=== PATIENT | male | born 1990 | race Caucasian/White ===

== ENCOUNTER 2022-01-15 05:33 | Outpatient (CLI) | payer OTHER ==
[~2022-01-15] VITALS: Ht 182.8 cm; Wt 77.0 kg
== END 2022-01-15 11:39 | disposition home or self-care (01) ==
LOC: PREOP 05:33
PROVIDERS: ATTEND Specialist
DX: Z01.818 Encounter for other preprocedural examination (principal)

== ENCOUNTER 2022-01-21 09:57 | Day surgery (SDC) | payer OTHER ==
[2022-01-21] VITALS (11 sets, daily range): BP systolic 112–139; BP diastolic 75–90
[~2022-01-21] VITALS: Ht 182.8 cm; Wt 77.0 kg
[2022-01-21] MEDS ORDERED: LACTATED RINGERS 1,000 ML IV PRN (10:30)
[2022-01-21] MEDS ORDERED: CLINDAMYCIN 600 MG/50 ML IVPB 50 ML IV ONE (10:30)
[2022-01-21] MEDS ORDERED: MIDAZOLAM 2 MG/2 ML (VERSED) VIAL ONE (10:58)
[2022-01-21] MEDS ORDERED: fentaNYL INJ 100 MCG/2 ML AMP ONE (10:58)
[2022-01-21] MEDS ORDERED: LIDOCAINE/EPI 2% 1:200,00 (XYLOCAINE) 10 ML VIAL ONE (10:59)
[2022-01-21] MEDS ORDERED: BACITRACIN OINTMENT 28 GM TUBE ONE (11:00)
[2022-01-21] MEDS ORDERED: ROPIVACAINE 5MG/ML 30ML VIAL ONE (11:00)
[2022-01-21] MEDS ORDERED: BSS 15 ML ONE (11:00)
[2022-01-21] MEDS ORDERED: PHENYLEPHRINE 0.5% NASAL SPR (NEO-SYNEPHRINE) REG ONE (11:00)
[2022-01-21] MEDS ORDERED: ROCURONIUM 50 MG/5 ML (ZEMURON) VIAL IV ONE (12:32)
[2022-01-21] MEDS ORDERED: LIDOCAINE PF 2% 5 ML (XYLOCAINE) VIAL ONE (12:32)
[2022-01-21] MEDS ORDERED: ONDANSETRON 4 MG/2 ML (SDV) Z0FRAN ONE (12:32)
[2022-01-21] MEDS ORDERED: proPOfol 200 MG/20 ML (DIPRIVAN) VIAL IV ONE (12:33)
[2022-01-21] MEDS ORDERED: SEVOFLURANE (ULTANE) 15 ML INHAL SOLN ONE ×2 (12:33→14:17)
[2022-01-21] MEDS ORDERED: HYDROmorphone 2 MG/ML VIAL (DILAUDID) ONE (13:47)
[2022-01-21] MEDS ORDERED: morphine INJ 10 MG/ML 1ML (SYR OR VIAL) IVP ONE (14:15)
[2022-01-21] MEDS ORDERED: ONDANSETRON 4 MG/2 ML (SDV) Z0FRAN IVP PRN (14:15)
[2022-01-21] MEDS ORDERED: HYDROmorphone 2 MG/ML VIAL (DILAUDID) IV ONE (14:15)
--- NOTE | 2022-01-21 14:21 | Anesthesia-General Post-Op ---
General Patient Condition Mental Status/LOC: Same as Preop Cardiovascular: Satisfactory Nausea/Vomiting: Absent Respiratory: Satisfactory Pain: Controlled Complications: Absent Post Op Complications Complications None Follow Up Care/Instructions Patient Instructions None needed. Anesthesia/Patient Condition Patient Condition Patient is doing well, no complaints, stable vital signs, no apparent adverse anesthesia problems. No complications reported per nursing. EULOGIO MILLARD DO Jan 21, 2022 14:21
--- NOTE | 2022-02-07 12:55 | OPERATIVE REPORT ---
DATE OF SERVICE: 01/21/2022 PREOPERATIVE DIAGNOSES: Deviated nasal septum, turbinate hypertrophy and decreased internal nasal valve angle bilaterally. POSTOPERATIVE DIAGNOSES: Deviated nasal septum, turbinate hypertrophy and decreased internal nasal valve angle bilaterally. PROCEDURES PERFORMED: Nasal osteotomies both laterally and medially, septoplasty and turbinectomy. SURGEON: Loretta Travis DDS. MECHANICAL SYSTEM TECHNICIAN: . ANESTHESIA: General endotracheal. COMPLICATIONS: There were no complications. BLOOD LOSS: Approximately 100 mL. FLUIDS: 1200 mL of crystalloid. HISTORY OF PRESENT ILLNESS AND INDICATION FOR PROCEDURE: The patient is a 31-year-old otherwise healthy white male, who presents with a history of chronic stuffiness, postnasal drip as well as by report numerous sinus infections and again pain and fullness in his frontal and ethmoid sinuses. After I examined him and speaking with him in detail, he has had steroids, multiple rounds of antibiotics and has been evaluated by his primary care physician and stated to the point that he felt that he was going to have to require evaluation and possible surgery. We originally placed him on some Medrol Dosepak when he presented and also some nasal steroids; however, these were refractory and offered no improvement. We then did a CT of his nasal complex and then it was seen that he did have a gross amount of nasal turbinate hypertrophy to the point that I did not see the ability to have airflow. He also had a deviated nasal septum and constriction of internal nasal valve angled down to about 70 degrees. While he is a male, he has a rather arched and narrow nose and even at the piriform rim. Subsequently, I advised him that we would have to perform nasal osteotomies and nasal septoplasty and turbinectomy. He was allowed to ask questions. We saw him back twice for consultation just to make sure that he was not going to be able to be possibly treated without surgery; however, this was not the case and then he elected for surgery at the earliest opportune time. DESCRIPTION OF PROCEDURE: The patient was taken to the operating room and placed on laboratory table with appropriate monitors placed and anesthesia was induced via orotracheal intubation without difficulty. Once this was secured, the surgeon left the room, scrubbed, returned, donned sterile gowns and gloves and prepped and draped the patient in the usual standard sterile fashion. After this, we deposited local anesthesia in and around the piriform rim both internally on the anterior wall of the maxilla and medially on the lateral aspect of the nasal wall as well as on the floor of the nose and the nasal septum at the junction of the cartilage and the bony septum. This was allowed to take effect basically for hemostasis. We also packed nasal Himanshu-Synephrine gauze and after meticulous constriction to allow us better visualization as well as hemostasis. After this, we used a #15 blade to excise along the anterior portion of the piriform rims bilaterally and elevated a full thickness mucoperiosteal flap, but done it in such a way that we essentially just used a periosteal elevator to make a tunnel, leave as much of the periosteum attached both on the anterior and medial aspect. This was done bilaterally. I then used an osteotome and excised along the piriform rim at the junction of the maxilla and the nasal bones anterior to the glabellar region and then stopping short at the nasolacrimal ducts bilaterally. I then used Boies elevator just to elevate and mobilize these segments. Also, at this time, we used a #15 blade to excise through the mucosa of the nasal septum down to the floor of the nose, ended up leaving approximately 1 cm, stopping short of the roof of the superior aspect of the cartilage and then was dissected back to the junction of the cartilaginous and bony septum and then under direct visualization was able to mobilize the septum without difficulty and then also used an John forceps to reduce the bones and straighten up the septum after removing some cartilage and freeing up the floor of the nose or the mid palatal crest. Once this was completed, we then closed with 4-0 chromic gut intranasally. I then again used a Boies elevator and made sure that we had increased nasal valve angle to approximately 15 degrees bilaterally winded and then made sure that we had adequate reduction of the nasal septal bones on the maxilla and then subsequently used a Bovie electrocautery, diathermy and direct vision, and a scalpel to excise this grossly enlarged nasal turbinates, particularly inferior and the medial ones. After this, we once again checked to make sure we had adequate hemostasis and the septum was indeed no longer deviated and that we had increased his nasal airway at the piriform rim as well. We then closed the access to the piriform rim with 4-0 chromic, placed Coyne splints intranasally and then sewn in the columellar region with a 2-0 Prolene. We then placed an Aquaplast splint externally to protect his nasal bones and maintaining her new osteotomy position. After this, we had placed a throat pack prior to starting, this was removed and he was allowed to emerge from his general anesthetic until he was breathing spontaneously and extubated in the operating room and then transported to the recovery room, where he was assessed to have stable vital signs, breathing spontaneously with a pulse ox of 99%. Job ID: [id number] DocumentID: [id number] Dictated Date: 02/07/2022 07:47:19 Stretcher Operator Date: 02/07/2022 12:54:47 Dictated By: LORETTA TRAVIS DDS
== END 2022-01-21 15:39 | disposition home or self-care (01) ==
LOC: SDC 09:57
PROVIDERS: ATTEND Specialist
DX: J34.2 Deviated nasal septum (principal); J34.3 Hypertrophy of nasal turbinates; J34.89 Other specified disorders of nose and nasal sinuses
CPT/HCPCS: 87081